=== PATIENT | male | born 1975 | race Two or more races ===

== ENCOUNTER 2022-10-26 16:53 | Emergency (ER) | payer MEDICAID ==
[~2022-10-26] VITALS: Ht 175.3 cm; Wt 82.0 kg
[2022-10-26 17:02] VITALS: BP 130/82
[2022-10-26] MEDS ORDERED: METH-653 MT (19:44)
[2022-10-26] MEDS ORDERED: IBUP-2028 MT (19:44)
== END 2022-10-26 21:45 | disposition home or self-care (01) ==
LOC: ER 17:11
DX: S23.3XXA Sprain of ligaments of thoracic spine, initial encounter (principal); E11.9 Type 2 diabetes mellitus without complications; W01.0XXA Fall on same level from slipping, tripping and stumbling without subsequent striking against object, initial encounter; Y93.89 Activity, other specified; Y92.89 Other specified places as the place of occurrence of the external cause; Y99.8 Other external cause status
CPT/HCPCS: 99281

== ENCOUNTER 2022-12-22 19:18 | Emergency (ER) | payer OTHER ==
[~2022-12-22] VITALS: Ht 175.3 cm; Wt 75.9 kg
[~2022-12-22 19:18] MED LIST: IBUP-2028 MT; METH-653 MT
[2022-12-22 19:39] VITALS: BP 127/84
[2022-12-22] MEDS ORDERED: KETOROLAC 60MG/2ML VIAL IM ONE (21:30)
[2022-12-22] MEDS ORDERED: METH-653 MT (21:42)
[2022-12-22] MEDS ORDERED: IBUP-2029 MT (21:42)
== END 2022-12-22 22:15 | disposition home or self-care (01) ==
LOC: ER 19:18
DX: M25.511 Pain in right shoulder (principal)
CPT/HCPCS: 73030; 96372; 99283; J1885; Z7610; A4565